=== PATIENT | male | born 1945 | race Caucasian/White ===

== ENCOUNTER 2021-01-23 07:09 | Day surgery (SDC) | payer MEDICARE, BC ==
[~2021-01-23] VITALS: Ht 185.4 cm; Wt 116.9 kg
[~2021-01-23 07:09] MED LIST: CATAPRES 0.1MG0.1 MG PO; CIPRO 250MG TA250 MG PO; FLOMAX 0.40.4 MG/CAP PO; NO HOME MEDICATIONS
[2021-01-23 10:06] VITALS: BP 154/110; PULSE 88; TEMP 97.6
[2021-01-23] MEDS ORDERED: LIPITOR 10MG10 MG PO (10:11)
[2021-01-23] MEDS ORDERED: PROSCAR 5MG5 MG PO (10:11)
[2021-01-23] MEDS ORDERED: FARXIGA10 PO (10:12)
[2021-01-23] MEDS ORDERED: LOTENSIN20 MG PO (10:12)
[2021-01-23] MEDS ORDERED: NORCO 325 MG-51 TAB PO (13:47)
[2021-01-23 14:55] VITALS: BP 173/85; PULSE 65
[2021-01-23 15:10] VITALS: BP 160/78; PULSE 66; TEMP 97.3
[2021-01-23 15:25] VITALS: BP 165/78; PULSE 65
--- NOTE | 2021-01-23 16:15 | NUR ---
1455- Pt returned to bay 2 via cart. Monitors on and alarms set. Call light within reach. Report received from EBEN Mahoney. Pt alert and oriented. Pt requests diet soda and muffin. Pt reports improvement in pain to 3/10, no nausea. All operative sites clean, dry and well approximated. Wound vac running continuously at 125mmHg. Educated and pt on proper functioning and battery charging and to call office for any questions or concerns. 1510- Pt taking food and drink well. No complications noted. 1525- Discharge instructions and education given to pt. All questions answered to pt satisfaction. F/u apt made, reminder card given to patient. Handed to pt are a thank you card and discharge information. 1600- Pt transferred out of the hospital via wheelchair and 1 person assist, to private vehicle driven by .
[2021-01-24] MEDS ORDERED: FLOMAX 0.40.4 MG/CAP PO (14:02)
== END 2021-01-23 16:00 | disposition home or self-care (01) ==
LOC: SDCO 07:09
DX: C43.72 Malignant melanoma of left lower limb, including hip (principal); R59.0 Localized enlarged lymph nodes; I10 Essential (primary) hypertension; E11.9 Type 2 diabetes mellitus without complications; E78.5 Hyperlipidemia, unspecified; E78.00 Pure hypercholesterolemia, unspecified; Z20.822 Contact with and (suspected) exposure to COVID-19; Z79.899 Other long term (current) drug therapy; Z87.891 Personal history of nicotine dependence; Z79.84 Long term (current) use of oral hypoglycemic drugs; Z90.89 Acquired absence of other organs; Z80.3 Family history of malignant neoplasm of breast; Z80.52 Family history of malignant neoplasm of bladder
CPT/HCPCS: A9541; J0171; J0360; J0690; J1170; J2405; J2704; J3010; J7120

== ENCOUNTER 2021-01-24 12:52 | Emergency (ER) | payer MEDICARE, BC ==
[~2021-01-24] VITALS: Ht 182.9 cm; Wt 122.7 kg
[~2021-01-24 12:52] MED LIST changes: +FARXIGA10 PO; +LIPITOR 10MG10 MG PO; +LOTENSIN20 MG PO; +NORCO 325 MG-51 TAB PO; +PROSCAR 5MG5 MG PO
[2021-01-24 12:58] VITALS: TEMP 98.2
[2021-01-24 13:25] LABS: COLLECTION METHOD IN
[2021-01-24 13:41] LABS: MUCOUS Present /lpf; PH 5 (5-8); SQUAMOUS EPITHELIAL None Seen /hpf; URINE APPEARANCE Clear; URINE BACTERIA None Seen /hpf; URINE BILIRUBIN Negative (NEGATIVE); URINE BLOOD 2+ (NEGATIVE); URINE COLOR Yellow; URINE GLUCOSE 3+ (NEGATIVE); URINE KETONE Trace (NEGATIVE); URINE LEUKOCYTE ESTERASE Negative (NEGATIVE); URINE NITRATE Negative (NEGATIVE); URINE PROTEIN(semi-quant) Negative (NEGATIVE); URINE UROBILINOGEN Negative (NEGATIVE)
[2021-01-24] MEDS ORDERED: FLOMAX 0.40.4 MG/CAP PO (14:02)
[2021-01-24 14:33] VITALS: BP 139/76; PULSE 66
== END 2021-01-24 14:34 | disposition home or self-care (01) ==
LOC: COL.ER 12:52
PROVIDERS: Emergency Medicine
DX: R33.9 Retention of urine, unspecified (principal); I10 Essential (primary) hypertension; E11.9 Type 2 diabetes mellitus without complications; E78.5 Hyperlipidemia, unspecified; Z79.84 Long term (current) use of oral hypoglycemic drugs; Z79.899 Other long term (current) drug therapy
CPT/HCPCS: A4314

== ENCOUNTER 2021-04-08 06:21 | Day surgery (SDC) | payer MEDICARE, BC ==
[~2021-04-08] VITALS: Ht 185.4 cm; Wt 121.4 kg
[2021-04-08 07:14] VITALS: BP 164/99; PULSE 86; TEMP 97.9
[2021-04-08] MEDS ORDERED: LOTENSIN HCT 201 TA1 PO (07:33)
[2021-04-08 09:25] VITALS: BP 148/85; PULSE 68
--- NOTE | 2021-04-08 09:25 | NUR ---
Patient returns to room 8 per cart from surgery accompanied by Amador BERMUDEZ and Dang RN. Dressing dry on the left port site with two pin sized areas of drainage. Sites marked and will continue to monitor. Temp 97.1 and room air sats 98%. Given diet Pepsi to drink. Spouse in room. Call light in reach. Siderails up x2 and call light in reach.
[2021-04-08 09:40] VITALS: BP 153/71; PULSE 65
--- NOTE | 2021-04-08 09:40 | NUR ---
Room air sats 99%. Tolerates fluids.
[2021-04-08 09:55] VITALS: BP 156/75; PULSE 67
--- NOTE | 2021-04-08 09:55 | NUR ---
Eating muffin and drinking water. Denies pain. No further drainage noted on dressing.
--- NOTE | 2021-04-08 10:05 | NUR ---
IV discontinued and site is free of redness or swelling. Patient dresses self.
--- NOTE | 2021-04-08 10:23 | NUR ---
Dismissal instructions given and voices understanding of these.
--- NOTE | 2021-04-08 10:27 | NUR ---
Patient dismissed to home driven by spouse and taken to the front door per wheelchair and assisted into vehicle with instructions in hand.
== END 2021-04-08 10:23 | disposition home or self-care (01) ==
LOC: SDCO 06:21
DX: C43.72 Malignant melanoma of left lower limb, including hip (principal); I87.8 Other specified disorders of veins; I10 Essential (primary) hypertension; E11.9 Type 2 diabetes mellitus without complications; E78.5 Hyperlipidemia, unspecified; E78.00 Pure hypercholesterolemia, unspecified; N40.0 Benign prostatic hyperplasia without lower urinary tract symptoms; Z79.899 Other long term (current) drug therapy
CPT/HCPCS: C1788; J0690; J1644; J2704; J7120

== ENCOUNTER 2021-07-10 13:14 | Inpatient (IN) | payer MEDICARE, BC ==
[2021-07-10] VITALS (137 sets, daily range): BP systolic 124–125; BP diastolic 42–74; PULSE 93–94; TEMP 90.5–93; O2SAT 33–100
[~2021-07-10] VITALS: Wt 116.8 kg
[~2021-07-10 13:14] MED LIST changes: +LOTENSIN HCT 201 TA1 PO
[2021-07-10 14:02] LABS: HEMATOCRIT 47.9 % (42.0-52.0); HEMOGLOBIN 15.9 g/dl (13.5-18.0); MEAN CELL VOLUME 90 fl (80.0-100.0); MEAN CORPUSCULAR HEMOGLOBIN 30 pg (27-31); MEAN CORPUSCULAR HGB CONC 33 g/dl (33.0-37.0); MEAN PLATELET VOLUME 10.2 fl (7.4-10.4); PLATELET COUNT 194 K/mm3 (130-400); REDCELL DISTRIBUTION WIDTH-CV 14.6 % (11.5-14.5)
[2021-07-10 14:14] LABS: ALANINE AMINOTRANSFERASE 26 U/L (0-55); ALBUMIN 3.7 gm/dL (3.4-4.8); ALKALINE PHOSPHATASE 100 U/L (40-150); AST,SGOT 14 U/L (5-34); BILIRUBIN,TOTAL 0.3 mg/dL (0.2-1.2); BLOOD UREA NITROGEN 55 mg/dL (8-26); CALCIUM 8.9 mg/dL (8.4-10.2); CHLORIDE 100 mmol/L (98-107); CREATININE, serum 2.79 mg/dL (0.72-1.25); POTASSIUM 5.6 mmol/L (3.5-4.5); SODIUM 130 mmol/L (136-145); TOTAL PROTEIN 6.9 gm/dL (6.2-8.1)
[2021-07-10 14:17] LABS: GLUCOSE 578 mg/dL (70-99)
[2021-07-10 14:19] LABS: ACETONE,SERUM MODERATE
[2021-07-10 14:20] LABS: TROPONIN-I 0.018 ng/mL (0.00-0.033)
[2021-07-10 14:25] LABS: CARBON DIOXIDE < 5 mmol/L (23-31)
[2021-07-10] MEDS ORDERED: KEYTRUDA25 MG/ML IV (14:34)
[2021-07-10] MEDS ORDERED: COMPAZINE 110 MG/TAB PO (14:34)
[2021-07-10] MEDS ORDERED: MYSOLINE 5050 MG/TAB PO (15:26)
--- NOTE | 2021-07-10 16:00 | NUR ---
PT arrived via stretcher to ICU05 from ED. PT was moved from stretcher to bed using sheet slide transfer. PT is alert and orient but appears to be very sick. PT is accompanied by . PT questions answered, call light within reach.
[2021-07-10 16:18] LABS: PARTIAL THROMBOPLASTIN TIME 29.6 SECONDS (26.0-37.0)
[2021-07-10 18:35] LABS: COLLECTION METHOD CLEAN CATCH
[2021-07-10 18:50] LABS: MUCOUS Present (NOT PRESENT); PH 5 (5-8); SQUAMOUS EPITHELIAL 0-2 /hpf (0-10); URINE APPEARANCE Cloudy (CLEAR/HAZY); URINE BACTERIA Rare /hpf (NONE SEEN); URINE BILIRUBIN Negative (NEGATIVE); URINE BLOOD 3+ (NEGATIVE); URINE COLOR Yellow (YELLOW); URINE GLUCOSE 3+ (NEGATIVE); URINE KETONE 1+ (NEGATIVE); URINE LEUKOCYTE ESTERASE Negative (NEGATIVE); URINE NITRATE Negative (NEGATIVE); URINE PROTEIN(semi-quant) 2+ (NEGATIVE); URINE RBC >50 /hpf (0-2); URINE UROBILINOGEN Negative (NEGATIVE)
[2021-07-10 18:58] LABS: BLOOD UREA NITROGEN 39 mg/dL (8-26); CALCIUM 7.2 mg/dL (8.4-10.2); CHLORIDE 103 mmol/L (98-107); CREATININE, serum 1.41 mg/dL (0.72-1.25); POTASSIUM 4.4 mmol/L (3.5-4.5); SODIUM 127 mmol/L (136-145)
[2021-07-10 19:01] LABS: ARTERIAL BLD GAS O2 SATURATION 99.1 % (92-100); ARTERIAL BLD GAS TCO2 CT 2.3; ARTERIAL BLOOD GAS BASE EXCESS -26.5 (-2-2)
[2021-07-10 19:02] LABS: ARTERIAL BLOOD GAS PCO2 7.9 mmHg (35-45); ARTERIAL BLOOD GAS pH 7.03 (7.35-7.45)
[2021-07-10 19:03] LABS: ARTERIAL BLOOD GAS PO2 188.3 mmHg (80-100)
--- NOTE | 2021-07-10 19:15 | NUR ---
Received report from EBEN Epps.
[2021-07-10 19:29] LABS: CARBON DIOXIDE < 5 mmol/L (23-31); GLUCOSE 404 mg/dL (70-99)
--- NOTE | 2021-07-10 19:30 | NUR ---
Patient resting in bed visiting with and daughter who are at the bedside. Patient is alert and partially oriented. He denies any nausea, pain, or discomfort. Temperature via temp argueta is 93 F - bear hugger and warm blankets in place. Other vitals within normal limits. Patient continues to receive 6L via nasal cannula, tolerating well. He is also receiving insulin, heparin, and levophed drips, see IV drip titrations.
[2021-07-10 20:13] LABS: BLOOD UREA NITROGEN 48 mg/dL (8-26); CALCIUM 8.2 mg/dL (8.4-10.2); CHLORIDE 105 mmol/L (98-107); CREATININE, serum 2.02 mg/dL (0.72-1.25); GLUCOSE 390 mg/dL (70-99); POTASSIUM 4.5 mmol/L (3.5-4.5); SODIUM 132 mmol/L (136-145)
[2021-07-10 20:14] LABS: CARBON DIOXIDE < 5 mmol/L (23-31)
[2021-07-10 22:20] LABS: BLOOD UREA NITROGEN 46 mg/dL (8-26); CALCIUM 7.9 mg/dL (8.4-10.2); CHLORIDE 108 mmol/L (98-107); CREATININE, serum 1.84 mg/dL (0.72-1.25); GLUCOSE 329 mg/dL (70-99); POTASSIUM 4.1 mmol/L (3.5-4.5); SODIUM 133 mmol/L (136-145)
[2021-07-10 22:22] LABS: CARBON DIOXIDE < 5 mmol/L (23-31)
[2021-07-11] VITALS (517 sets, daily range): BP systolic 90–161; BP diastolic 30–74; PULSE 82–105; TEMP 96.6–98.8; O2SAT 96–100
[2021-07-11 00:14] LABS: CALCIUM 7.7 mg/dL (8.4-10.2); CREATININE, serum 1.79 mg/dL (0.72-1.25)
[2021-07-11 02:12] LABS: CALCIUM 7.8 mg/dL (8.4-10.2); CREATININE, serum 1.69 mg/dL (0.72-1.25); POTASSIUM 3.7 mmol/L (3.5-4.5)
[2021-07-11 05:08] LABS: MEAN CORPUSCULAR HGB CONC 35 g/dl (33.0-37.0); MEAN PLATELET VOLUME 9.8 fl (7.4-10.4); PLATELET COUNT 142 K/mm3 (130-400); RED BLOOD COUNT 4.42 M/mm3 (4.20-5.60); REDCELL DISTRIBUTION WIDTH-CV 14.4 % (11.5-14.5)
[2021-07-11 05:17] LABS: HEMATOCRIT 36.8 % (42.0-52.0); MEAN CELL VOLUME 83 fl (80.0-100.0); MEAN CORPUSCULAR HEMOGLOBIN 29 pg (27-31)
[2021-07-11 05:19] LABS: HEMOGLOBIN 12.9 g/dl (13.5-18.0)
[2021-07-11 05:22] LABS: CALCIUM 7.8 mg/dL (8.4-10.2); CREATININE, serum 1.7 mg/dL (0.72-1.25); POTASSIUM 3.4 mmol/L (3.5-4.5)
[2021-07-11 06:13] LABS: BAND 31 % (0-10); LYMPHOCYTE 12 % (20.0-51.0); METAMYELOCYTE 1 % (0-0); NEUTROPHILS 46 % (42.0-75.2); PLATELET ESTIMATE NORMAL (NORMAL)
[2021-07-11 07:04] LABS: CALCIUM 7.9 mg/dL (8.4-10.2); CREATININE, serum 1.69 mg/dL (0.72-1.25); MAGNESIUM 1.8 mg/dL (1.6-2.6); POTASSIUM 3.3 mmol/L (3.5-4.5)
[2021-07-11 07:25] LABS: TSH w REFLEX 0.038 uIU/mL (0.350-4.940)
--- NOTE | 2021-07-11 07:25 | NUR ---
Troponin I critical report attempted - no answer - unable to leave voice message
[2021-07-11 07:29] LABS: TROPONIN-I 0.068 ng/mL (0.00-0.033)
--- NOTE | 2021-07-11 08:10 | NUR ---
Second attempt to contact MD Mela - no answer - unable to leave voicemail. Cardiology office called him and was unable to reach him as well
--- NOTE | 2021-07-11 08:20 | NUR ---
MD Bibi called in to state he will be Cadiology Provider legal services professional today - Troponin I critical lab value reported - MD ensured pt is on heparin gtt - no further orders
[2021-07-11 08:35] LABS: CALCIUM 7.7 mg/dL (8.4-10.2); CREATININE, serum 1.62 mg/dL (0.72-1.25); POTASSIUM 3.5 mmol/L (3.5-4.5)
[2021-07-11 11:00] LABS: CALCIUM 7.7 mg/dL (8.4-10.2); CREATININE, serum 1.6 mg/dL (0.72-1.25); POTASSIUM 4.4 mmol/L (3.5-4.5)
[2021-07-11 18:44] LABS: CALCIUM 7.8 mg/dL (8.4-10.2); CREATININE, serum 1.44 mg/dL (0.72-1.25); POTASSIUM 3.6 mmol/L (3.5-4.5)
--- NOTE | 2021-07-11 19:00 | NUR ---
Received report from EBEN Duckworth. Patient resting quietly in bed. at bedside. Patient denies any nausea but reports lack of appetite. Vitals within normal limits. He denies any pain or discomfort.
[2021-07-12] VITALS (347 sets, daily range): BP systolic 141–164; BP diastolic 77–96; PULSE 79–99; TEMP 97.5–98.1; O2SAT 94–100
[2021-07-12 04:44] LABS: HEMOGLOBIN 11.9 g/dl (13.5-18.0); MEAN CELL VOLUME 82 fl (80.0-100.0); MEAN CORPUSCULAR HEMOGLOBIN 29 pg (27-31); MEAN CORPUSCULAR HGB CONC 36 g/dl (33.0-37.0); MEAN PLATELET VOLUME 9.6 fl (7.4-10.4); PLATELET COUNT 108 K/mm3 (130-400); RED BLOOD COUNT 4.09 M/mm3 (4.20-5.60); REDCELL DISTRIBUTION WIDTH-CV 14.7 % (11.5-14.5)
[2021-07-12 04:49] LABS: HEMATOCRIT 33.5 % (42.0-52.0)
[2021-07-12 05:00] LABS: CALCIUM 7.9 mg/dL (8.4-10.2); CREATININE, serum 1.3 mg/dL (0.72-1.25); MAGNESIUM 2.1 mg/dL (1.6-2.6); POTASSIUM 3.3 mmol/L (3.5-4.5)
[2021-07-12 05:09] LABS: TROPONIN-I 0.021 ng/mL (0.00-0.033)
--- NOTE | 2021-07-12 07:34 | NUR ---
RECEIVED BEDSIDE SHIFT REPORT FROM EBEN CLEMENS. PATIENT IN BED RESTING AND HAVING BREAKFAST. INSULIN AND FLUIDS HAVE BEEN DISCONTINUED. CALL LIGHT WITHIN REACH AND SLIGHTLY HYPERTENSIVE, OTHERWISE STABLE. VIRK CATHETER IN PLACE.
--- NOTE | 2021-07-12 12:30 | NUR ---
CALLED DR. OLIVER REGARDING CRITICAL HEPARIN VALUE AND NEW BLOOD FOUND IN STOOL. AWAITING CALL BACK
--- NOTE | 2021-07-12 12:56 | NUR ---
CALLED REPORT TO NURSE WHO IS TO RECEIVE PATIENT ON SURGICAL.
[2021-07-12 14:27] LABS: PARTIAL THROMBOPLASTIN TIME 41.2 SECONDS (26.0-37.0)
--- NOTE | 2021-07-12 14:44 | NUR ---
SW met with patient while he was in ICU to complete intake before being transfered to the surgical floor. Patient states that he lives in [facility] with is Karen [phone] or [phone]. Patient states that does not utilize DME and is independent with ADL's. PCP is Dr. Lewis and pharmacy is [facility]. Patient states that his has been appointed a his DPOA/HC. Patient states that he plans to return to his home upon DC. Patient had no further questions or concerns. SW will continue to follow. DC plan: home
--- NOTE | 2021-07-12 14:50 | NUR ---
UPDATED VIA CHARGE NURSE THAT DR. OLIVER WAS FINE WITH CONTINUING CARE IS.
--- NOTE | 2021-07-12 15:16 | NUR ---
Pt recently arrived to the floor from ICU. PT is alert and oriented with no pain complaints. Lung sounds clear, heart rate regular bowel sounds active. Pt has lizz cath accessed as well as a picc line. Pt came to the floor with heparin on standby due to critical high hepxa. Hepxa drawn around 1400 showed significantly lower. Resumed heparin per protocol, but suspect hepxa at 1130 was not accurate. Will continue to follow protocol as is. Discussed with pharmacy.
--- NOTE | 2021-07-12 18:00 | NUR ---
Pt has done well since arriving to the floor from ICU, had not had any pain complaints and denies any needs.
[2021-07-13] VITALS (9 sets, daily range): BP systolic 157–180; BP diastolic 68–84; PULSE 74–92; TEMP 97.6–98.2
--- NOTE | 2021-07-13 01:20 | NUR ---
PATIENT ALERT AND ORIENTED. DENIES PAIN. HEP XA AT 1999 WAS 0.22, INCREASED 150 UNITS/HR, NOW RUNNING AT 13.5 ML/HR. RECHECK DUE AT 0300. VIRK TO DD WITH GOOD OUTPUT. TELE REPORTING SINUS RHYTHM. PORT L CHEST IS ACCESSED. PICC MANDA WITH HEP GTT AND IV FLUIDS INFUSING. BP WAS HIGH AT MIDNIGHT CHECKS, 175/84, CALL PLACED TO DINA MILLER, AND ORDER FOR 10 MG OF HYDRALAZINE PLACED AND GIVEN. WILL RECHECK IN 30 MINUTES. PATIENT REQUESTS THAT THEY RESTART HIS HOME BP MEDS WHICH HAS BEEN HELD. WILL RELAY THIS TO DOCTORS.
[2021-07-13 03:44] LABS: CALCIUM 7.8 mg/dL (8.4-10.2); CREATININE, serum 1.06 mg/dL (0.72-1.25); MAGNESIUM 2.2 mg/dL (1.6-2.6); POTASSIUM 3.6 mmol/L (3.5-4.5)
--- NOTE | 2021-07-13 04:05 | NUR ---
PATIENTS BP WAS 174/77 AT 0400 CHECK. CALL TO DINA MILLER, AND ORDER FOR ANOTHER 10 MG OF HYDRALAZINE TO BE GIVEN. MED WAS GIVEN, WILL RECHECK IN 30 MINUTES.
--- NOTE | 2021-07-13 04:40 | NUR ---
0300 hep xa was 0.33. hep gtt increased by 100 units. now currently running at 14.5 mls/hr.
--- NOTE | 2021-07-13 08:43 | NUR ---
Assessment completed, alert/oriented, vital signs stable/ HTN and restarted him on his home Norvasc dosing, heart RRR/ SR on tele, remains on Hep gtt at this time, kidney function/labs improving, argueta patent and good urine output, blood sugars are in better control, he denies pain or discomfort this morning, will continue to monitor, denies needs at this time
--- NOTE | 2021-07-13 08:43 | NUR ---
Patient receiving Keytruda chemotherapy agent. Patient to be on chemo precautions throughout stay. Sign placed outside room and notified primary nurse.
--- NOTE | 2021-07-13 13:06 | NUR ---
First visit from the seam closer. No needs right now.
--- NOTE | 2021-07-13 14:04 | NUR ---
viscose department worker met with patient to discuss PT/OT recommendations of home health and going home with a walker. Patient is presented with the [facility].gov list of home health agencies. Patient verbalizes that he would like to talk over the agencies with his after she gets here later. Notified the patient that PT is recommending her go home with a walker. The patient verbalizes that he is in agreement with this and would like the order sent to [facility]. Patient's DME order signed and faxed over to [facility]. Patient is presented with the [facility].IM form. Education provided and patients signed original placed in his chart. Copy made and provided back to the patient.
--- NOTE | 2021-07-13 22:00 | NUR ---
Received report from day shift. Assessment performed. Patient denies any pain at this time. Lungs CTA, bowel sounds audible. Hep gtt running. PM meds administered. Sotolol initiation began, EKG ordered for two hours post administration. Patient resting in bed with call light near.
[2021-07-14 04:49] VITALS: BP 148/59; PULSE 71; TEMP 97.4
[2021-07-14 07:16] LABS: BASO % 0.5 % (0.0-2.0); EOS # 0.2 K/mm3 (0.0-0.7); EOS % 3.8 % (0.0-4.0); GRAN # 2.1 K/mm3 (1.4-6.5); GRAN % 50.9 % (42.2-75.2); HEMOGLOBIN 11.8 g/dl (13.5-18.0); LYMPH # 1.3 K/mm3 (1.2-3.4); LYMPH % 29.9 % (20.0-51.0); MEAN CELL VOLUME 84 fl (80.0-100.0); MEAN CORPUSCULAR HEMOGLOBIN 29 pg (27-31); MEAN CORPUSCULAR HGB CONC 35 g/dl (33.0-37.0); MEAN PLATELET VOLUME 9.3 fl (7.4-10.4); MONO # 0.6 K/mm3 (0.1-0.6); MONO % 13.9 % (1.7-9.3); PLATELET COUNT 113 K/mm3 (130-400); RED BLOOD COUNT 4.03 M/mm3 (4.20-5.60); REDCELL DISTRIBUTION WIDTH-CV 14.6 % (11.5-14.5)
[2021-07-14 07:21] LABS: HEMATOCRIT 33.9 % (42.0-52.0)
[2021-07-14 07:31] LABS: CALCIUM 8.1 mg/dL (8.4-10.2); CREATININE, serum 0.92 mg/dL (0.72-1.25); POTASSIUM 3.6 mmol/L (3.5-4.5)
[2021-07-14 08:00] VITALS: BP 159/82; PULSE 70; TEMP 97.7
--- NOTE | 2021-07-14 09:22 | NUR ---
ASSESSMENT COMPLETE. PT. UP IN CHAIR AND BREAKFAST ORDERED. SOME EDEMA TO ANKLES AND FEET. CENTRAL LINE INTACT AND PATENT. AT BEDISIDE. NO COMPLAINTS OF PAIN OR N/V. NO NEEDS AT THIS TIME.
[2021-07-14 12:00] VITALS: BP 145/76; PULSE 67; TEMP 98.2
[2021-07-14 16:00] VITALS: BP 139/79; PULSE 68; TEMP 98.3
--- NOTE | 2021-07-14 16:16 | NUR ---
SW met with patient and patient's at bedside. I notified them both that his walker is at [facility] and is ready for fruit or nut picker at any time. Asked if they had agreeded on a HH agency. Patient verbalizes that he would like to be established with [facility]. Clinical information faxed to Tricia at [facility].
[2021-07-14 19:44] VITALS: BP 153/76; PULSE 72; TEMP 99.3
[2021-07-15] VITALS (7 sets, daily range): BP systolic 116–171; BP diastolic 51–82; PULSE 53–94; TEMP 97.4–98.8
--- NOTE | 2021-07-15 00:16 | NUR ---
Received report from day shift. Patient here for treatment for DKA. VSS. Patient alert and oriented x4. Patient started on eliquis and Hep gtt DC'd. Patient denies any pain at this time. PM meds administered. Patient resting in bed with call light near.
--- NOTE | 2021-07-15 05:49 | NUR ---
Patient had an uneventful shift. Patient denies pain at this time. meter shop supervisor meds administered. Patient resting in bed with call light near.
[2021-07-15 06:21] LABS: BASO % 0.5 % (0.0-2.0); EOS # 0.2 K/mm3 (0.0-0.7); EOS % 3.2 % (0.0-4.0); GRAN # 2.9 K/mm3 (1.4-6.5); HEMOGLOBIN 12.1 g/dl (13.5-18.0); LYMPH # 1.9 K/mm3 (1.2-3.4); LYMPH % 32.1 % (20.0-51.0); MEAN CELL VOLUME 85 fl (80.0-100.0); MEAN CORPUSCULAR HEMOGLOBIN 29 pg (27-31); MEAN CORPUSCULAR HGB CONC 35 g/dl (33.0-37.0); MEAN PLATELET VOLUME 10.1 fl (7.4-10.4); MONO # 0.8 K/mm3 (0.1-0.6); MONO % 13.4 % (1.7-9.3); PLATELET COUNT 151 K/mm3 (130-400); RED BLOOD COUNT 4.13 M/mm3 (4.20-5.60); REDCELL DISTRIBUTION WIDTH-CV 14.4 % (11.5-14.5)
[2021-07-15 06:29] LABS: HEMATOCRIT 35.1 % (42.0-52.0)
[2021-07-15 06:33] LABS: CALCIUM 8.3 mg/dL (8.4-10.2); CREATININE, serum 0.85 mg/dL (0.72-1.25); POTASSIUM 3.5 mmol/L (3.5-4.5)
--- NOTE | 2021-07-15 09:04 | NUR ---
Called RT regarding getting EKG prior to giving Sotalol. Janel with RT stated that she is supposed to get one after the Sotalol is given. Informed her that I needed it for the QT prior to giving. She stated for me to use the one from last night. Called and clarified and again called Janel with RT and stated that I need EKG prior to giving Sotalol. She stated she would get to it
--- NOTE | 2021-07-15 09:20 | NUR ---
Pt doing well this morning. He has no pain complaints. He reported getting a good nights sleep last night. Pt has been up walking in the halls. Pt is hopeful to get to go home. Informed him that his blood sugar was a little low this morning, so may need to stay to get blood sugars more stable. Morning insulin held. Pts present in the room. Pt has had and tolerate breakfast. No other needs, call light within reach
--- NOTE | 2021-07-15 10:00 | NUR ---
Ordered pts lunch for him per his request to be delivered at 1130. Lunch ordered at this time
--- NOTE | 2021-07-15 14:00 | NUR ---
Rechecked BP as it was high over lunch. BP within normal limits. Pt doing well, he is currently sitting up in the chair. Pt has showered today. Reports not needs or complaints. Call light within reach
--- NOTE | 2021-07-15 19:14 | NUR ---
RECEIVED CHANGE OF SHIFT REPORT FROM DAY SHIFT RN.
[2021-07-16 00:02] VITALS: BP 138/65; PULSE 65; TEMP 97.6
[2021-07-16 04:33] VITALS: BP 140/71; PULSE 58; TEMP 97.6
[2021-07-16 06:35] LABS: BASO % 0.4 % (0.0-2.0); EOS # 0.2 K/mm3 (0.0-0.7); EOS % 3.5 % (0.0-4.0); GRAN % 52.6 % (42.2-75.2); HEMOGLOBIN 11.9 g/dl (13.5-18.0); LYMPH # 1.6 K/mm3 (1.2-3.4); LYMPH % 27.9 % (20.0-51.0); MEAN CELL VOLUME 87 fl (80.0-100.0); MEAN CORPUSCULAR HEMOGLOBIN 30 pg (27-31); MEAN CORPUSCULAR HGB CONC 34 g/dl (33.0-37.0); MEAN PLATELET VOLUME 10.1 fl (7.4-10.4); MONO # 0.8 K/mm3 (0.1-0.6); MONO % 14.5 % (1.7-9.3); PLATELET COUNT 147 K/mm3 (130-400); RED BLOOD COUNT 4.04 M/mm3 (4.20-5.60); REDCELL DISTRIBUTION WIDTH-CV 14.1 % (11.5-14.5)
[2021-07-16 06:51] LABS: CALCIUM 8.2 mg/dL (8.4-10.2); CREATININE, serum 0.9 mg/dL (0.72-1.25); POTASSIUM 4.3 mmol/L (3.5-4.5)
--- NOTE | 2021-07-16 07:14 | NUR ---
CHANGE OF SHIFT REPORT GIVEN TO DAY SHIFT RNDEIDRE
[2021-07-16] MEDS ORDERED: ELIQUIS 5MG PO (07:18)
[2021-07-16] MEDS ORDERED: BETAPACE 80MG80 MG PO (07:18)
[2021-07-16] MEDS ORDERED: NORVASC 5MG5 MG/TAB PO (07:18)
[2021-07-16] MEDS ORDERED: ASPIRIN E.C. 8181 MG PO (07:19)
[2021-07-16 07:25] VITALS: BP 150/63; PULSE 60; TEMP 97.9
[2021-07-16] MEDS ORDERED: ZESTRIL 20MG TA20 MG PO (08:44)
[2021-07-16] MEDS ORDERED: GLUCOTROL 5M5 MG/TAB PO (08:50)
[2021-07-16] MEDS ORDERED: LANCETS MC ×3 (08:52→14:15)
[2021-07-16] MEDS ORDERED: FREESTYLE PREC1 EAC5 MC ×3 (08:52→14:15)
[2021-07-16] MEDS ORDERED: BD ALCOHOL1 SWA MC ×2 (08:52→14:15)
[2021-07-16] MEDS ORDERED: GLUCOSE TEST ST1 DEV MC ×3 (08:52→14:13)
--- NOTE | 2021-07-16 09:18 | NUR ---
Pt doing well this morning, he has received discharge orders which he is happy about. Informed him that it will take a little while to get things all finalized. Pt has tolerated general diet and has no complaints of pain. Morning medications given. Telemetry discontinued, notified tele and removed tele. Pts is present in the room. Discussed new medications as well as blood glucose supplies
--- NOTE | 2021-07-16 09:50 | NUR ---
EBEN Ayala with [facility] in with pt to remove PICC line
--- NOTE | 2021-07-16 10:40 | NUR ---
Social work met with patient to present M[facility].IM form. Education provided.Patient verbalizes his agreement with the plan of discharging today. Signed original placed in the patient's chart and copy provided back to the patient. Tricia with [facility] contacted and notified of patient's discharge today. Clinical updates and discharge orders faxed to Tricia. Discharge plan: Home with [facility]
--- NOTE | 2021-07-16 11:28 | NUR ---
Pt doing well, reviewed discharge instructions with him and his . Specifically went over medications also gave him last time he took them. Port flushed and deaccessed. Pt stated lunch should be here soon and then he would be ready to go.
== END 2021-07-16 11:45 | disposition home health service (06) | DRG 637 ==
LOC: COL.ER 13:14 → SURG 15:20 → ICU 15:20 → SURG 07-12 14:30
PROVIDERS: Emergency Medicine; Physician Assistant; ADMIT Internal Medicine
PROC: 02HV33Z Insertion of Infusion Device into Superior Vena Cava, Percutaneous Approach (ICD-10-PCS; principal; 2021-07-10)
DX: E11.10 Type 2 diabetes mellitus with ketoacidosis without coma (principal); R57.1 Hypovolemic shock; I21.A1 Myocardial infarction type 2; N17.9 Acute kidney failure, unspecified; C43.72 Malignant melanoma of left lower limb, including hip; I10 Essential (primary) hypertension; E87.5 Hyperkalemia; I48.0 Paroxysmal atrial fibrillation; E87.6 Hypokalemia; E11.649 Type 2 diabetes mellitus with hypoglycemia without coma
CPT/HCPCS: 99232-AI; 99233-AI; 99239; C1751; J0360; J0692; J1160; J1644; J1815; J2185; J3370; J3475; J7030; J7040; J7060; J7120

== ENCOUNTER → 2021-08-07 | Outpatient (CLI) | payer MEDICARE, BC ==
[~2021-08-07] MED LIST changes: +ASPIRIN E.C. 8181 MG PO; +BD ALCOHOL1 SWA MC; +BETAPACE 80MG80 MG PO; +COMPAZINE 110 MG/TAB PO; +ELIQUIS 5MG PO; +FREESTYLE PREC1 EAC5 MC; +GLUCOSE TEST ST1 DEV MC; +GLUCOTROL 5M5 MG/TAB PO; +KEYTRUDA25 MG/ML IV; +LANCETS MC; +MYSOLINE 5050 MG/TAB PO; +NORVASC 5MG5 MG/TAB PO; +ZESTRIL 20MG TA20 MG PO
== END ==
LOC: COL.RAD 08:02
DX: M47.812 Spondylosis without myelopathy or radiculopathy, cervical region (principal); M48.02 Spinal stenosis, cervical region; R25.1 Tremor, unspecified
CPT/HCPCS: A9575